=== PATIENT | female | born 1965 | race Caucasian/White ===

== ENCOUNTER 2017-04-07 19:41 | Emergency (ER) | payer OTHER ==
[~2017-04-07] VITALS: Ht 170.2 cm; Wt 84.3 kg
[~2017-04-07 19:41] MED LIST: ACET-1256 PO; BACL10TA PO; DOXY100C2 PO; EEMT HS PO; ESCI1TAB10 PO; IBUP-1050 PO; LEVO75TA PO; METH5TAB2 PO; METO25TA3 PO; NRN/600 PO; OXYC-164 PO; TOPI50TA16 PO; TRIATAB3 PO
[2017-04-07 19:44] VITALS: TEMP 36.9; Ht 170.2 cm; Wt 84.3 kg
[2017-04-07] MEDS ORDERED: MoRPHine SULFATE 4 MG/ML 1 ML CARP\\VIAL IV STA (19:53)
[2017-04-07] MEDS ORDERED: ONDANSETRON INJ 2 MG/ML 2 ML VIAL IV STA (19:53)
[2017-04-07 20:15] LABS: BASO % 0.5 %; BASO ABS # 0.07 K/uL (0-0.2); COMPLETE YES; EOS % 1.9 %; HEMATOCRIT 42.8 % (37-47); IG% 0.2 %; LYMPH % 20.6 %; LYMPH ABS # 2.63 K/uL (1.2-3.4); MEAN CELL VOLUME 94.1 fL (80-100); MEAN CORPUSCULAR HEMOGLOBIN 31.4 pg (25-34); MEAN CORPUSCULAR HGB CONC 33.4 g/dl (32-36); MEAN PLATELET VOLUME 11.6 fL (7.4-10.4); MONO % 7.6 %; NEUT % 69.2 %; PLATELET COUNT 264 K/uL (130-400); RED BLOOD COUNT 4.55 M/uL (4.2-5.4); WHITE BLOOD COUNT 12.74 K/uL (4.8-10.8)
[2017-04-07 20:30] LABS: BUN/CREATININE RATIO 11.2 (10-20); CALCIUM 8.9 mg/dl (8.5-10.1); CREATININE 1.3 mg/dl (0.60-1.20); POTASSIUM 4.2 mmol/L (3.5-5.1)
[2017-04-07 20:52] LABS: PREG INTERNAL NEGATIVE QC NEG CLEAR BACKGROUND; PREG INTERNAL POSITIVE QC POS CONTROL LINE
--- NOTE | 2017-04-07 20:59 | DIAGNOSTIC IMAGING REPORT ---
CT SCAN OF THE ABDOMEN AND PELVIS WITHOUT IV CONTRAST CLINICAL HISTORY: Left flank pain. COMPARISON STUDY: No priors. TECHNIQUE: CT scan of the abdomen and pelvis is performed from the lung bases to the proximal femora. Images are reviewed in the axial, sagittal, and coronal planes. IV contrast was not administered for this examination as per the referring clinician. Automated dose control exposure was utilized. CT DOSE: 1232.96 mGy.cm FINDINGS: Lung bases: The heart is normal in size and without pericardial effusion. The lung bases are clear. Bilateral breast implants are noted. Liver: The unenhanced liver is normal in size, contour, and attenuation. There is no intrahepatic biliary ductal dilatation. Gallbladder: Unremarkable. Spleen: Normal in size and attenuation. Pancreas: Unremarkable. Adrenal glands: Unremarkable. Kidneys: The unenhanced kidneys are normal in size and without hydronephrosis. There is a 2 mm nonobstructing calculus in the upper pole of the left kidney. No right renal calculi are identified. There is no evidence of contour deforming renal mass lesion. Abdominal vasculature: The abdominal aorta is normal in course and caliber noting mild atherosclerotic calcification. Bowel: The small bowel and colon are normal in course and caliber. There is mild to moderate colonic fecal retention. The appendix is well-visualized and normal. Peritoneum: There is no intraperitoneal free air or abdominal ascites. There is a small fat-containing umbilical hernia. Lymphadenopathy: None. Pelvic viscera: The bladder is decompressed but appears thick-walled. The uterus is surgically absent. No adnexal lesion is seen. There is trace free fluid in the cul-de-sac. Findings suggest previous right inguinal herniorrhaphy. Skeletal structures: There is mild lumbosacral spondylosis. Degenerative endplate sclerosis is noted at L5-S1. No lytic or blastic lesions are seen. IMPRESSION: 1. Although decompressed the bladder appears thick walled. Correlate clinically and urinalysis for evidence of cystitis. 2. There is a 2 mm nonobstructing left renal calculus. 3. There is trace nonspecific free fluid in cul-de-sac, potentially physiologic. 4. Additional findings as above. Electronically signed by: Andrade Turner M.D. 04/07/2017 8:58 PM Dictated Date/Time: 04/07/2017 8:52 PM
[2017-04-07 21:00] LABS: URINE APPEARANCE CLEAR (CLEAR); URINE COLOR DK YELLOW; URINE EPITHELIAL CELL AUTO 20-30 /lpf (0-5); URINE NITRITE NEG (NEG); URINE SPECIFIC GRAVITY 1.022 (1.000-1.030); UROBILINOGEN NEG (NEG)
[2017-04-07 21:02] LABS: MANUAL MICROSCOPIC REQUIRED? NO; REVIEW REQ? NO
[2017-04-07 21:03] LABS: URINE BILIRUBIN NEG (NEG)
[2017-04-07] MEDS ORDERED: LEVO50TA6 PO (21:26)
[2017-04-07] MEDS ORDERED: NRT25 PO (21:26)
[2017-04-07] MEDS ORDERED: HCG SL (21:27)
[2017-04-07 21:35] VITALS: BP 103/59; PULSE 71; O2SAT 96
--- NOTE | 2017-04-07 22:18 | EMERGENCY ROOM VISIT NOTE ---
History Report prepared by Wilmar: Ozzie Mcmahan Under the Supervision of: Dr. Carl Armando M.D. First contact with patient: 19:47 Chief Complaint: ABDOMINAL PAIN Stated Complaint: PAIN L SIDE AB AND BACK PAIN History of Present Illness The patient is a 51 year old female who presents to the Emergency Room with complaints of constant left lower abdominal pain beginning four to five days ago. She describes the pain as "aching". She also complains of left sided back pain beginning 9 days ago. The patient notes that she has chronic constipation due to being on chronic pain medication for neck pain following a traumatic injury. She states that her bowel movements have been unchanged from her baseline. She has no history of kidney stones, or diverticulitis. The patient denies any vomiting, fevers, black or bloody stool, or urinary symptoms. She has a history of hernias. Source of History: patient Onset: four days ago Position: abdomen (left lower) Quality: ache Timing: constant Associated Symptoms: + back pain (beginning 9 days ago), No fevers, No hematochezia, No melena, No urinary symptoms, No vomiting Review of Systems See HPI for pertinent positives & negatives. A total of 10 systems reviewed and were otherwise negative. Past Medical & Surgical Medical Problems: (1) cyst removal (2) Hysterectomy (3) skin problems (4) Tonsillectomy Family History No pertinent family history Social History Smoking Status: Current Every Day Smoker Marital Status: Housing Status: lives with family Current/Historical Medications Scheduled Baclofen (Lioresal), 10 MG PO TID Escitalopram Oxalate (Lexapro), 20 MG PO DAILY Levothyroxine Sodium (Levothyroxine Sodium), 1 TAB PO DAILY Methadone Hcl (Dolophine), 2.5 MG PO TID Metoprolol Succinate (Toprol Xl), 25 MG PO DAILY Nortriptyline HCl (Nortriptyline HCl), 1 CAP PO DAILY Topiramate (Topamax), 100 MG PO BID Triamterene/Hctz (Triamterene/Hctz 37.5-25MG), 0.5 TAB PO 2XWK [Eemt Hs], 0.625-1.25 MG PO DAILY [Hcg Drops], 125 UNITS SL DAILY Scheduled PRN Oxycodone Hcl (Oxycodone Hcl), 1 TAB PO TID PRN for Pain Allergies Coded Allergies: Cephalosporins (Verified Allergy, Unknown, Swelling, 04/07/17) Erythromycin (Verified Allergy, Unknown, Swelling, 04/07/17) Levofloxacin (Verified Allergy, Unknown, Swelling, 04/07/17) Sulfamethoxazole w/Trimethoprim (Verified Allergy, Unknown, Swelling, 04/07) Uncoded Allergies: 1 (Allergy, Unknown, 01/08/03) CEPHLASPOU SEE LIST (Allergy, Unknown, 01/08/03) Physical Exam Vital Signs Date Time Temp Pulse Resp B/P Pulse Ox O2 Delivery O2 Flow Rate FiO2 04/07/17 21:35 71 18 103/59 96 Room Air 04/07/17 19:44 36.9 88 20 124/83 98 Room Air Physical Exam Constitutional: Vital signs reviewed. Eyes: Pupils are equal round reactive to light. Conjunctiva are noninjected. ENT: Pharynx is clear without erythema or exudate. Mucous membranes are moist. Neck supple without meningeal signs. Respiratory: Clear to auscultation bilaterally. Breath sounds are equal bilaterally. Cardiovascular: Regular rate and rhythm. No rubs or gallops. GI: Soft, and nondistended. Bowel sounds are present. Very minimal LLQ tenderness. No guarding. No CVA tenderness. Musculoskeletal: No peripheral edema. No lower extremity tenderness. Integumentary: No cyanosis. Neurological: The patient is awake and alert. No focal deficits. Psychiatric: Normal affect. Medical Decision & Procedures ER Provider Diagnostic Interpretation: CT results as stated below per my review and radiologist interpretation. CT SCAN OF THE ABDOMEN AND PELVIS WITHOUT IV CONTRAST FINDINGS: Lung bases: The heart is normal in size and without pericardial effusion. The lung bases are clear. Bilateral breast implants are noted. Liver: The unenhanced liver is normal in size, contour, and attenuation. There is no intrahepatic biliary ductal dilatation. Gallbladder: Unremarkable. Spleen: Normal in size and attenuation. Pancreas: Unremarkable. Adrenal glands: Unremarkable. Kidneys: The unenhanced kidneys are normal in size and without hydronephrosis. There is a 2 mm nonobstructing calculus in the upper pole of the left kidney. No right renal calculi are identified. There is no evidence of contour deforming renal mass lesion. Abdominal vasculature: The abdominal aorta is normal in course and caliber noting mild atherosclerotic calcification. Bowel: The small bowel and colon are normal in course and caliber. There is mild to moderate colonic fecal retention. The appendix is well-visualized and normal. Peritoneum: There is no intraperitoneal free air or abdominal ascites. There is a small fat-containing umbilical hernia. Lymphadenopathy: None. Pelvic viscera: The bladder is decompressed but appears thick-walled. The uterus is surgically absent. No adnexal lesion is seen. There is trace free fluid in the cul-de-sac. Findings suggest previous right inguinal herniorrhaphy. Skeletal structures: There is mild lumbosacral spondylosis. Degenerative endplate sclerosis is noted at L5-S1. No lytic or blastic lesions are seen. IMPRESSION: 1. Although decompressed the bladder appears thick walled. Correlate clinically and urinalysis for evidence of cystitis. 2. There is a 2 mm nonobstructing left renal calculus. 3. There is trace nonspecific free fluid in cul-de-sac, potentially physiologic. 4. Additional findings as above. Electronically signed by: Andrade Turner M.D. Laboratory Results 04/07/17 20:05 Red Blood Count 4.55, Mean Corpuscular Volume 94.1, Mean Corpuscular Hemoglobin 31.4, Mean Corpuscular Hemoglobin Concent 33.4, Mean Platelet Volume 11.6, Neutrophils (%) (Auto) 69.2, Lymphocytes (%) (Auto) 20.6, Monocytes (%) (Auto) 7.6, Eosinophils (%) (Auto) 1.9, Basophils (%) (Auto) 0.5, Neutrophils # (Auto) 8.81, Lymphocytes # (Auto) 2.63, Monocytes # (Auto) 0.97, Eosinophils # (Auto) 0.24, Basophils # (Auto) 0.07 04/07/17 20:05 Test 04/07/17 20:05 04/07/17 20:35 White Blood Count 12.74 K/uL (4.8-10.8) Red Blood Count 4.55 M/uL (4.2-5.4) Hemoglobin 14.3 g/dL (12.0-16.0) Hematocrit 42.8 % (37-47) Mean Corpuscular Volume 94.1 fL (80-100) Mean Corpuscular Hemoglobin 31.4 pg (25-34) Mean Corpuscular Hemoglobin Concent 33.4 g/dl (32-36) Platelet Count 264 K/uL (130-400) Mean Platelet Volume 11.6 fL (7.4-10.4) Neutrophils (%) (Auto) 69.2 % Lymphocytes (%) (Auto) 20.6 % Monocytes (%) (Auto) 7.6 % Eosinophils (%) (Auto) 1.9 % Basophils (%) (Auto) 0.5 % Neutrophils # (Auto) 8.81 K/uL (1.4-6.5) Lymphocytes # (Auto) 2.63 K/uL (1.2-3.4) Monocytes # (Auto) 0.97 K/uL (0.11-0.59) Eosinophils # (Auto) 0.24 K/uL (0-0.5) Basophils # (Auto) 0.07 K/uL (0-0.2) RDW Standard Deviation 45.7 fL (36.4-46.3) RDW Coefficient of Variation 13.2 % (11.5-14.5) Immature Granulocyte % (Auto) 0.2 % Immature Granulocyte # (Auto) 0.02 K/uL (0.00-0.02) Anion Gap 6.0 mmol/L (3-11) Est Creatinine Clear Calc Drug Dose 57.1 ml/min Estimated GFR () 55.0 Estimated GFR (Non- 47.5 BUN/Creatinine Ratio 11.2 (10-20) Calcium Level 8.9 mg/dl (8.5-10.1) Total Bilirubin 0.5 mg/dl (0.2-1) Direct Bilirubin 0.1 mg/dl (0-0.2) Aspartate Amino Transf (AST/SGOT) 15 U/L (15-37) Alanine Aminotransferase (ALT/SGPT) 18 U/L (12-78) Alkaline Phosphatase 101 U/L (45-117) Total Protein 7.8 gm/dl (6.4-8.2) Albumin 3.9 gm/dl (3.4-5.0) Lipase 130 U/L (73-393) Urine Color DK YELLOW Urine Appearance CLEAR (CLEAR) Urine pH 6.0 (4.5-7.5) Urine Specific [place] 1.022 (1.000-1.030) Urine Protein NEG (NEG) Urine Glucose (UA) NEG (NEG) Urine Ketones TRACE (NEG) Urine Occult Blood NEG (NEG) Urine Nitrite NEG (NEG) Urine Bilirubin NEG (NEG) Urine Urobilinogen NEG (NEG) Urine Leukocyte Esterase TRACE (NEG) Urine WBC (Auto) 1-5 /hpf (0-5) Urine RBC (Auto) 5-10 /hpf (0-4) Urine Hyaline Casts (Auto) 10-30 /lpf (0-5) Urine Epithelial Cells (Auto) 20-30 /lpf (0-5) Urine Bacteria (Auto) NEG (NEG) Urine Test NEG (NEG) Laboratory results as reviewed by me. Medications Administered Medications (Trade) Dose Ordered Sig/Sara Route Start Time Stop Time Status Last Admin Dose Admin Morphine Sulfate (MoRPHine SULFATE INJ) 4 mg ONE STAT IV 04/07/17 19:53 04/07/17 19:55 DC 04/07/17 20:13 4 MG Ondansetron HCl (Zofran Inj) 4 mg NOW STAT IV 04/07/17 19:53 04/07/17 19:55 DC 04/07/17 20:14 4 MG ED Course 1948: The patient was evaluated in room C11. A complete history and physical exam was performed. 1952: Ordered Zofran Inj 4 mg IV, Morphine Sulfate 4 mg IV. 2109: Upon reevaluation, the patient appeared to have improvement of her symptoms. I discussed lena's findings with the patient. She verbalized agreement of the treatment plan. The patient was discharged home. Medical Decision This is a 51-year-old female presents with left lower quadrant pain. Differential diagnosis includes diverticulitis, kidney stone, obstructive uropathy, UTI, strain. I did perform a limited focused review of portions of the patient's old chart on the electronic medical record. The patient has had no recent pertinent visits to this hospital. I did evaluate the patient as noted above. IV access was established. I did treat patient with IV Zofran and morphine. I did order and review the patient' s urinalysis as described above. I did order and review the patient's blood work as noted in the electronic medical record. Her white blood cell count and creatinine are slightly elevated. I did order a CT of the abdomen and pelvis. I did review the images myself as well as the radiology report as described above. CT does not show any acute process. I did reevaluate the patient. She is feeling better. I did discuss the test results with the patient and her . At this time the cause of her symptoms is unclear. She was therefore advised to follow closely with her doctor for reevaluation and further workup. She was discharged in good condition and given return instructions as outlined below. Impression Primary Impression: Abdominal pain, left lower quadrant Scribe Attestation The scribe's documentation has been prepared under my direct and personally reviewed by me in its entirety. I confirm that the note above accurately reflects all work, treatment, procedures, and medical decision making performed by me. Departure Information Dispostion Home / Self-Care Referrals Jose Green D.O. (PCP) Forms Call Back Authorization, HOME CARE DOCUMENTATION FORM, IMPORTANT VISIT INFORMATION Patient Instructions ED Abd Pain Unkn Cause Fem, My [facility] Additional Instructions You have been examined and treated today on an emergency basis only. This is not a substitute for, or an effort to provide, complete comprehensive medical care. It is impossible to recognize and treat all injuries or illnesses in a single emergency department visit. It is therefore important that you follow up closely with your physician. Call as soon as possible for an appointment. Return for worsening symptoms or if you develop fever, vomiting, or any other concerning symptoms.
== END 2017-04-07 21:52 | disposition home or self-care (01) ==
LOC: C.EDB 19:43 → C.EDC 21:52
DX: R10.32 Left lower quadrant pain (principal); F17.200 Nicotine dependence, unspecified, uncomplicated; N20.0 Calculus of kidney